=== PATIENT | male | born 1960 | race Caucasian/White ===

== ENCOUNTER 2021-07-10 19:37 | Emergency (ER) | payer OTHER, BC ==
[~2021-07-10] VITALS: Ht 198.1 cm; Wt 145.1 kg
[2021-07-10 19:45] VITALS: BP_SYST 137
[2021-07-10] MEDS ORDERED: ACET-2634 PO (21:09)
[2021-07-10] MEDS ORDERED: LIDO1ADH77 TD (21:09)
[2021-07-10] MEDS ORDERED: CYCL10TA24 PO (21:09)
[2021-07-10] MEDS ORDERED: KETOROLAC TROMETHAMINE 60 MG/2 ML VIAL IM ONE (21:15)
[2021-07-10] MEDS ORDERED: DIAZEPAM 5 MG TABLET (VALIUM) PO ONE (21:15)
[2021-07-10 21:42] VITALS: BP_SYST 132
== END 2021-07-10 21:42 | disposition home or self-care (01) ==
LOC: SED 19:37
DX: M54.2 Cervicalgia (principal); M54.5 Low back pain; I10 Essential (primary) hypertension; Z79.899 Other long term (current) drug therapy; V49.49XA Driver injured in collision with other motor vehicles in traffic accident, initial encounter; Y93.89 Activity, other specified; Y92.89 Other specified places as the place of occurrence of the external cause; Y99.8 Other external cause status
CPT/HCPCS: 96372; 99283; J1885